=== PATIENT | male | born 1990 | race Caucasian/White ===

== ENCOUNTER → 2022-04-13 09:56 | Outpatient (CLI) | payer OTHER, SELFPAY ==
--- NOTE | ~2022-04-13 | XR_ITS ---
EXAMINATION: XR lumbar spine 2-3V DATE: 04/13/2022 10:20 INDICATION: Low back pain radiating down the left leg. TECHNIQUE: 3 views of lumbar spine were obtained. COMPARISON: None. 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 Vertebral body heights and intervertebral disc heigh ts are normal. There are endplate osteophytes at multiple levels. There is multilevel mild facet join t osteoarthritis. IMPRESSION: 1. Mild lumbar spondylosis. Reviewed, dictated and finalized at location B. IMPRESSION: 1. Mild lumbar spondylosis.
== END ==
DX: M47.896 Other spondylosis, lumbar region (principal)
CPT/HCPCS: 72100